=== PATIENT | male | born 1995 | race Caucasian/White ===

== ENCOUNTER 2016-12-17 13:22 | Emergency (ER) | payer OTHER | END 2016-12-17 15:00 | disposition home or self-care (01) | LOC: ER 13:22 | DX: K28.3 Acute gastrojejunal ulcer without hemorrhage or perforation (principal); K21.9 Gastro-esophageal reflux disease without esophagitis; E66.9 Obesity, unspecified; Z90.49 Acquired absence of other specified parts of digestive tract; Z88.0 Allergy status to penicillin; Z68.37 Body mass index [BMI] 37.0-37.9, adult | CPT/HCPCS: 36415; 96374; 96375 ==

== ENCOUNTER → 2016-12-25 | Day surgery (SDC) | payer OTHER | END | disposition home or self-care (01) | LOC: SDC 06:14 | DX: K29.50 Unspecified chronic gastritis without bleeding (principal); G47.33 Obstructive sleep apnea (adult) (pediatric); J45.909 Unspecified asthma, uncomplicated; I10 Essential (primary) hypertension; K21.9 Gastro-esophageal reflux disease without esophagitis; Z79.899 Other long term (current) drug therapy; Z88.0 Allergy status to penicillin; Z90.49 Acquired absence of other specified parts of digestive tract; Z86.69 Personal history of other diseases of the nervous system and sense organs | CPT/HCPCS: J2704 ==